=== PATIENT | female | born 1985 | race Caucasian/White ===

== ENCOUNTER 2016-07-10 11:47 | Outpatient (CLI) | payer OTHER ==
[2016-07-10 13:16] VITALS: BP 137/89; PULSE 88; RESP 18; TEMP 98.1
== END 2016-07-10 12:40 | disposition home or self-care (01) ==
LOC: FBPOP 11:47
PROVIDERS: ATTEND Obstetrics & Gynecology
DX: O30.93 Multiple gestation, unspecified, third trimester (principal); Z3A.00 Weeks of gestation of pregnancy not specified
CPT/HCPCS: 59025

== ENCOUNTER 2016-07-18 10:42 | Outpatient (CLI) | payer OTHER | END 2016-07-18 11:28 | disposition home or self-care (01) | LOC: FBPOP 10:42 | PROVIDERS: ATTEND Obstetrics & Gynecology | DX: O30.93 Multiple gestation, unspecified, third trimester (principal); Z3A.36 36 weeks gestation of pregnancy | CPT/HCPCS: 59025 ==

== ENCOUNTER 2016-07-20 05:46 | Inpatient (IN) | payer OTHER ==
--- NOTE | 2016-07-19 06:06 | P.HPOB ---
History of Present Illness H&P Date: 07/19/16 Chief Complaint: Patient is presenting for repeat and tubal ligation This patient is a pleasant 31-year-old 2 para 1 female estimated date of confinement 08/10/2016 estimated gestational age 37-0/7 weeks who presents to labor and delivery for repeat section secondary to previous section and known monochorionic/diamniotic twins. Patient has been followed by maternal medicine and they have recommended delivery at 37 weeks. Patient has a velamentous cord insertion of twin #2. Patient is also requesting tubal ligation at the time of her section. Review of Systems Constitutional: Denies chills, Denies fever Ears, nose, mouth and throat: Denies headache, Denies sore throat Cardiovascular: Denies chest pain, Denies shortness of breath Respiratory: Denies cough Gastrointestinal: Reports heartburn Genitourinary: Reports Menstruation: Reports amenorrhea Musculoskeletal: Denies myalgias Integumentary: Denies pruritus, Denies rash Neurological: Denies numbness, Denies weakness Past Medical History Past Medical History: No Reported History Additional Past Medical History / Comment(s): Patient has a history of infertility and conceived on Clomid. History of Any Multi-Drug Resistant Organisms: None Reported Past Surgical History: Breast Surgery, Section, Orthopedic Surgery Additional Past Surgical History / Comment(s): breast reduction, multiple ortho procedures Past Anesthesia/Blood Transfusion Reactions: No Reported Reaction Additional Past Anesthesia/Blood Transfusion Reaction / Comment(s): slow to wake up from anesthesia Past Psychological History: No Psychological Hx Reported Smoking Status: Never smoker Past Alcohol Use History: None Reported Past Drug Use History: None Reported - Past Family History Mother Family Medical History: No Reported History Medications and Allergies Home Medications Medication Instructions Recorded Confirmed Type Fuo-Eibo-Grtfz Acid 1 each PO DAILY 05/04/14 07/18/16 History [-U Capsule] Allergies Allergy/AdvReac Type Severity Reaction Status Date / Time No Known Allergies Allergy Verified 07/14/16 14:40 Exam - OBG Physical Exam Abdomen: bowel sounds normal, no diffuse tenderness, no bruit present, no guarding noted, no hepatomegaly, no splenomegaly, no mass Vulva: both: normal Vagina: normal moisture, no discharge Cervix: no lesion (Cervix is closed in the office.), no discharge Uterus: enlarged (Most recent fundal height was 48 cm.) Results blood work shows she is A positive, rubella immune, RPR nonreactive, hepatitis B negative, Glucola was normal 2, group B strep was negative, ultrasounds shows monochorionic/diamniotic twins. Assessment and Plan (1) Monochorionic and monoamniotic twin gestation Narrative/Plan: This is a pleasant 31-year-old 2 para 1 female 37-0/7 weeks gestation with known monochorionic/diamniotic twins with velamentous cord insertion and twin 2. Maternal medicine is recommended delivery at 37 weeks. His had previous section desires repeat and tubal ligation. Plan is repeat low transverse section and bilateral partial salpingectomy. The patient and I discussed the surgery in detail including risks of infection, bleeding, possible injury to bowel, bladder, vessels, and/or other organs. She also understands risk of DVT and pulmonary embolism. All the patient's questions are answered and a written consent is obtained. Status: Acute (2) Previous delivery affecting Status: Acute (3) Family planning Status: Acute
[2016-07-20] MEDS ORDERED: LACTATED RINGERS 1,000 ML IV ONE (05:51)
[2016-07-20] MEDS ORDERED: LACTATED RINGERS 1,000 ML IV SCH (05:51)
[2016-07-20] MEDS ORDERED: CITRIC ACID-SODIUM CITRATE 15 ML CUP PO ONE (05:51)
[2016-07-20 06:14] LABS: Basophils # (A) 0.1 k/uL (0-0.2); Basophils % (A) 0 %; CH 30.6; CHCM 35.4; Eosinophils # (A) 0.3 k/uL (0-0.7); Eosinophils % (A) 3 %; HCT 34.6 % (34.0-46.0); HDW 2.91; HGB 12.4 gm/dL (11.4-16.0); Luc # (Auto) 0.23; Luc % (Auto) 2; Lymphocytes # (A) 2.7 k/uL (1.0-4.8); Lymphocytes % (A) 21 %; MCH 31.2 pg (25.0-35.0); MCHC 35.9 g/dL (31.0-37.0); Mean Platelet Volume 8.7; Monocytes # (A) 0.5 k/uL (0-1.0); Monocytes % (A) 4 %; Neutrophils % (A) 71 %; RBC 3.98 m/uL (3.80-5.40); RDW 14.7 % (11.5-15.5); WBC 12.7 k/uL (3.8-10.6); WBC (Perox) 11.88
[2016-07-20 06:46] VITALS: BMI 41.5
[2016-07-20] MEDS ORDERED: ceFAZolin 3 GM in SODIUM CHLORIDE 0.9% 100 ML IVPB ONE (07:16)
[2016-07-20] MEDS ORDERED: PHENYLEPHRINE-0.9% NACL SYG 1 MG/10 ML SYRINGE ONE (07:50)
[2016-07-20] MEDS ORDERED: KETOROLAC 30 MG/ML 1 ML VIAL ONE (07:50)
[2016-07-20] MEDS ORDERED: OXYTOCIN 10 UNIT/ML 1 ML VIAL ONE (07:50)
[2016-07-20] MEDS ORDERED: NALBUPHINE 10 MG/ML AMPUL ONE (07:50)
[2016-07-20] MEDS ORDERED: ONDANSETRON 4 MG/2 ML VIAL ONE (07:50)
[2016-07-20] MEDS ORDERED: fentaNYL (PF) 50 MCG/ML 2 ML AMP ONE (07:50)
[2016-07-20] MEDS ORDERED: MORPHINE SULFATE (PF) 0.3 MG/0.3 ML SYR ONE (07:50)
[2016-07-20] MEDS ORDERED: NALOXONE 0.4 MG/ML 1 ML VIAL IV PRN ×2 (08:20→09:48)
[2016-07-20] MEDS ORDERED: diphenhydrAMINE 50 MG/ML 1 ML VIAL IVP PRN ×2 (08:20→09:48)
[2016-07-20] MEDS ORDERED: MORPHINE SULFATE 4 MG/ML SYRINGE IVP PRN (08:20)
[2016-07-20] MEDS ORDERED: ONDANSETRON 4 MG/2 ML VIAL IVP PRN ×2 (08:20→09:48)
[2016-07-20] MEDS ORDERED: KETOROLAC 30 MG/ML 1 ML VIAL IVP PRN ×2 (08:20→09:48)
[2016-07-20] MEDS ORDERED: NALBUPHINE 10 MG/ML AMPUL IV PRN (08:20)
--- NOTE | 2016-07-20 08:42 | P.OP ---
Date of Procedure: 07/20/16 Preoperative Diagnosis: #1: 37-0/7 weeks . #2: Known twin gestation monochorionic diamniotic. #3: Previous section. #4: Multi parity desires permanent sterilization. #5: Probable early labor. Postoperative Diagnosis: Same Procedure(s) Performed: #1: Repeat low transverse section. #2: Bilateral partial salpingectomy. Implants: Anesthesia: spinal Surgeon: Pedro Finley Skoog Machine Operator #1: Yeimi Granda Estimated Blood Loss (ml): 800 Pathology: other (Placenta and bilateral fallopian tube segments) Condition: stable Disposition: floor Indications for Procedure: Please see dictated H&P for intimate details of this patient's admission. In brief summary this is a pleasant 31-year-old 2 para 1 female 37-0/7 weeks gestation with known twin that is model chorionic and diamniotic. Recommendation has been per maternal medicine to deliver at 37 weeks and this was scheduled for today however patient does appear to be in early labor as well. Patient also was requesting permanent sterilization at this time. She understands this is permanent, however there is a failure rate of approximately 20 per thousand procedures done. She understands if she does become a 50% chance of a tubal or an ectopic . Rebeca also understands the surgery itself has risks including risks of infection, bleeding , possible injury to bowel, bladder, vessels, and/or other organs. Patient understands risk of DVT and pulmonary embolism. All the patient's questions are answered and a written consent is obtained. Operative Findings: Twin one was a vigorous viable male infant Apgars 8 and 9 in the vertex presentation at 0805 hrs. Twin 2 was a vigorous viable male infant Apgars 9 and 9 delivery time is 0806 hrs. in the transverse presentation. Description of Procedure: This patient has a Palomino catheter placed to straight drain. She subsequently taken to the operating room where she sat up and spinal anesthetic is administered without incident. With an adequate level of anesthesia she has abdominal prep and drape. Scalpels and taken in the previous Pfannenstiel incision is incised. A second scalpel is taken down to the fascia and the fascia scored with a knife. Fascial incision extended bilaterally using the Parks scissors. Fascia is then dissected off the rectus muscles sharply. Rectus muscles are the peritoneum is identified and entered sharply. Peritoneal incision extended inferiorly superiorly without difficulty. Bladder blade is then placed. The bladder peritoneum was taken off the lower uterine segment sharply. Scalpels and taken a low transverse uterine incision is then made. Using a hemostat I into the lower uterine segment bluntly and there is loss of clear fluid. Fetus 1 is delivered in the vertex presentation with fundal pressure. Mouth and nares are bulb suctioned, there is a nuchal cord 1 which is reduced, and then delivery of the rest of this infant's body. This is a vigorous viable male infant Apgars are 8 and 9 delivery time was 0805 hrs. After delivery of fetus 1 a cord is doubly clamped and cut and the fetus is handed off to the nurses who were in attendance. Twin 2 is found to be transverse presentation I guided into the vertex presentation and has spontaneous rupture for clear fluid again. The's infant's head is delivered and mouth and nares are bulb suctioned. There is no evidence of a nuchal cord. Then have delivery the rest of this 's body. This is a vigorous viable male Apgars are 9 and 9 delivery time was 0806 hrs. After delivery of the the umbilical cord again is doubly clamped and cut and again appears trivascular. Inspection of the uterus shows a monochorionic diffuse placenta with 2 sacs. This is delivered manually intact. Uterus is then externalized and uterine incision demarcated with Jade clamps. Uterine incision is then closed using 0 Vicryl running locked fashion. Excellent hemostasis is noted. The bladder peritoneum was then reapproximated using a 30 in a running fashion. Then turned my attention to the left fallopian tube approximately 4 cm from its cornual insertion a small window is made to the mesial salpinx with Bovie cautery. Using a 2-0 silk I doubly ligate the tube and a 2 cm segment of the tube was excised and handed off to pathology. Cauterization is done of the tubal ends. I inspected right fallopian tube and do a similar technique and the right fallopian tube was partially excised. With this done excess fluid is removed from the abdomen and pelvis. Uterus placed back into the abdomen. I inspected tubal ostia once again the appear to be hemostatic. I then closed the parietal peritoneum using an 0 Vicryl running fashion. The rectus muscles reapproximated in 0 Vicryl interrupted fashion. Fascia is then closed using 0 PDS in a running fashion. Fascial incision is intact and hemostatic. Subcutaneous tissues and closed using a 3-0 Vicryl. Skin is and closed using darnell. All counts are correct 3. There are no complications. Infant and mother are taken to the birthing suite in satisfactory condition.
[2016-07-20] MEDS ORDERED: ACETAMINOPHEN TAB 325 MG TAB PO PRN (09:48)
[2016-07-20] MEDS ORDERED: METOCLOPRAMIDE 5 MG/ML 2 ML VIAL IVP PRN (09:48)
[2016-07-20] MEDS ORDERED: OXYTOCIN 20 UNITS/1000 ML NS 1,000 ML IV SCH (09:48)
[2016-07-20] MEDS ORDERED: diphenhydrAMINE 25 MG CAP PO PRN (09:48)
[2016-07-20] MEDS: LACTATED RINGERS 1,000 ML IV SCH ×2 (12:04→20:32)
[2016-07-20] MEDS: SENNOSIDES-DOCUSATE SODIUM 1 EACH TAB PO SCH ×2 (17:31→20:20)
[2016-07-20] MEDS: IBUPROFEN 600 MG TAB PO PRN (20:20)
[2016-07-20] MEDS ORDERED: ZOLPIDEM 5 MG TAB PO PRN (21:00)
[2016-07-21] MEDS: IBUPROFEN 600 MG TAB PO PRN ×3 (03:55→20:28)
[2016-07-21] MEDS: LACTATED RINGERS 1,000 ML IV SCH (04:43)
[2016-07-21] MEDS ORDERED: Acetaminophen-Codeine 300-30mg TAB PO PRN ×2 (05:44)
--- NOTE | 2016-07-21 05:47 | P.PNOBGPC ---
Subjective - Subjective Patient reports: Reports appetite normal, Reports voiding normally, Reports pain well controlled, Reports ambulating normally : doing well Objective - Vital Signs Latest vital signs: Vital Signs Temp Pulse Resp BP Pulse Ox 07/21/16 04:00 98.0 F 70 16 130/83 07/21/16 00:00 98.0 F 60 16 127/67 07/20/16 20:00 98.2 F 71 16 134/83 96 07/20/16 16:48 17 98 07/20/16 16:00 98.0 F 65 17 121/63 100 07/20/16 15:00 17 07/20/16 13:20 95 07/20/16 13:00 17 07/20/16 12:00 98.0 F 55 L 16 120/55 95 07/20/16 11:25 16 95 07/20/16 10:37 53 L 16 127/79 95 07/20/16 10:07 54 L 16 114/65 93 L 07/20/16 09:35 52 L 16 97/56 96 07/20/16 09:20 53 L 17 99/55 93 L 07/20/16 09:19 52 L 17 109/58 94 L 07/20/16 08:50 52 L 16 90/50 97 07/20/16 08:36 96.0 F L 60 17 104/58 95 07/20/16 05:50 96.4 F L 78 16 133/77 Intake and Output 07/20/16 07/20/16 07/21/16 14:59 22:59 06:59 Output Total 3150 800 Balance -3150 -800 Output: Urine 3150 800 Straight 1450 Other: # Voids 1 - Exam Lungs: bilateral: normal Chest: Normal S1, Normal S2 Extremities: Present: normal Abdomen: Present: normal appearance, soft. Absent: distention, tenderness Incision: Present: normal, dry, intact Uterus: Present: normal, firm - Labs Labs: Abnormal Lab Results - Last 24 Hours (Table) 07/20/16 Range/Units 06:00 WBC 12.7 H (3.8-10.6) k/uL Neutrophils # 9.0 H (1.3-7.7) k/uL Assessment and Plan (1) Monochorionic and monoamniotic twin gestation Narrative/Plan: Postoperative day #1. Patient is resting without complaints. Vital signs are stable and she is afebrile. Uterus is firm nontender her incision is intact and dry. CBC is pending at time this dictation. I impression this is a normal postoperative course. Plan is to continue routine postoperative care, check a CBC, encourage ambulation, and allow the patient to shower. Current Visit: Yes Status: Acute Code(s): O30.019 - TWIN , MONOCHORIONIC/MONOAMNIOTIC, UNSP TRIMESTER SNOMED Code(s): 054622793 (2) Previous delivery affecting Current Visit: Yes Status: Acute Code(s): O34.219 - MATERNAL CARE FOR UNSP TYPE SCAR FROM PREVIOUS DEL SNOMED Code(s): 368900264 (3) Family planning Current Visit: Yes Status: Acute Code(s): Z30.09 - ENCOUNTER FOR OTH GENERAL CNSL AND ADVICE ON CONTRACEPTION SNOMED Code(s): 42946151
[2016-07-21] MEDS: SIMETHICONE 80 MG CHEWABLE PO PRN ×3 (07:58→18:49)
[2016-07-21] MEDS: SENNOSIDES-DOCUSATE SODIUM 1 EACH TAB PO SCH ×2 (07:58→20:28)
[2016-07-21 08:06] LABS: Basophils % (A) 0 %; CH 30.7; CHCM 34.7; Eosinophils # (A) 0.3 k/uL (0-0.7); Eosinophils % (A) 2 %; HCT 34.3 % (34.0-46.0); HDW 2.92; HGB 11.7 gm/dL (11.4-16.0); Luc # (Auto) 0.17; Luc % (Auto) 2; Lymphocytes % (A) 17 %; MCH 30.2 pg (25.0-35.0); Mean Platelet Volume 8.1; Monocytes # (A) 0.5 k/uL (0-1.0); Monocytes % (A) 4 %; Neutrophils # (A) 8.7 k/uL (1.3-7.7); Neutrophils % (A) 74 %; RBC 3.86 m/uL (3.80-5.40); RDW 14.9 % (11.5-15.5); WBC 11.7 k/uL (3.8-10.6); WBC (Perox) 11.11
--- NOTE | 2016-07-21 10:52 | P.PN ---
Progress Note - Text Date:07/21 Time:715 Patient is status post . Patient seen this morning with VAS score of 0 at rest.c/o mild pruritus, no c/o nausea/vomiting, comfortable and doing well.
[2016-07-22] MEDS: LACTATED RINGERS 1,000 ML IV SCH (00:15)
[2016-07-22] MEDS: IBUPROFEN 600 MG TAB PO PRN ×2 (01:53→07:49)
--- NOTE | 2016-07-22 07:09 | P.PNOBGPC ---
Subjective - Subjective Patient reports: Reports appetite normal, Reports voiding normally, Reports pain well controlled, Reports ambulating normally : doing well Objective - Vital Signs Latest vital signs: Vital Signs Temp Pulse Resp BP Pulse Ox 07/22/16 00:00 97.7 F 70 16 132/72 100 07/21/16 16:00 97.8 F 76 20 130/78 97 07/21/16 12:00 98.0 F 82 20 135/86 98 07/21/16 08:00 97.8 F 71 24 136/77 97 Intake and Output 07/21/16 07/22/16 07/22/16 22:59 06:59 14:59 Intake Total 360 Balance 360 Intake: Oral 360 Other: Voiding Method Toilet Toilet # Voids 2 1 - Exam Lungs: bilateral: normal Chest: Normal S1, Normal S2 Extremities: Present: normal Abdomen: Present: normal appearance, soft. Absent: distention, tenderness Incision: Present: normal, dry, intact Uterus: Present: normal, firm - Labs Labs: Abnormal Lab Results - Last 24 Hours (Table) 07/21/16 Range/Units 07:47 WBC 11.7 H (3.8-10.6) k/uL Plt Count 148 L (150-450) k/uL Neutrophils # 8.7 H (1.3-7.7) k/uL Assessment and Plan (1) Monochorionic and monoamniotic twin gestation Narrative/Plan: Postoperative day #2. Patient is resting without complaints and most likely will go home today. Vital signs are stable and she is afebrile. Uterus is firm nontender she's having normal lochia. Patient is tolerating regular diet, ambulating, and urinating without difficulty. Incision is intact and dry. My impression is a normal postoperative course. Plan is to continue routine postoperative care discharge home later today Current Visit: Yes Status: Acute Code(s): O30.019 - TWIN , MONOCHORIONIC/MONOAMNIOTIC, UNSP TRIMESTER SNOMED Code(s): 283084290 (2) Previous delivery affecting Current Visit: Yes Status: Acute Code(s): O34.219 - MATERNAL CARE FOR UNSP TYPE SCAR FROM PREVIOUS DEL SNOMED Code(s): 936772733 (3) Family planning Current Visit: Yes Status: Acute Code(s): Z30.09 - ENCOUNTER FOR OTH GENERAL CNSL AND ADVICE ON CONTRACEPTION SNOMED Code(s): 51563293
--- NOTE | 2016-07-22 07:13 | P.DS ---
Providers Date of admission: 07/20/16 05:46 Expected date of discharge: 07/22/16 Attending physician: Pedro Finley Primary care physician: Pedro Finley - Discharge Diagnosis(es) (1) Monochorionic and monoamniotic twin gestation Current Visit: Yes Status: Acute (2) Previous delivery affecting Current Visit: Yes Status: Acute (3) Family planning Current Visit: Yes Status: Acute Hospital Course: Please see dictated H&P for intimate details of this patient's admission. Brief summary this is a pleasant 31-year-old 2 para 1 female 37-0/7 weeks gestation who is admitted to labor and delivery for elective repeat section and tubal ligation. Patient is also thought to be in early labor. Patient is admitted undergoes above-named surgery for twin male infants. Please see dictated operative note. Postoperative patient does well felt be stable for discharge home on postoperative #2 follow up with me in 1 week. Procedures: Repeat low transverse section and bilateral partial salpingectomy. Patient Condition at Discharge: Good Plan - Discharge Summary New Discharge Prescriptions: Acetaminophen-Codeine 300-30mg [Tylenol w/codeine #3] 1 - 2 each PO Q4HR PRN # 40 tab PRN Reason: Pain Ibuprofen [Motrin] 600 mg PO Q6HR PRN #40 tab PRN Reason: Mild Pain Or Fever >= 100.5 Discharge Medication List Ray-Vfbi-[id number] Acid [-U Capsule] 1 tab PO DAILY 05/04/14 [ History] Acetaminophen-Codeine 300-30mg [Tylenol w/codeine #3] 1 - 2 each PO Q4HR PRN # 40 tab 07/21/16 [Rx] Ibuprofen [Motrin] 600 mg PO Q6HR PRN #40 tab 07/21/16 [Rx] Follow up Appointment(s)/Referral(s): Pedro Finley MD [Primary Care Provider] - 07/27/16 1:45 pm (Patient also has a check on August 28 at 11:30 AM.) Patient Instructions/Handouts: (GEN) Activity/Diet/Wound Care/Special Instructions: No strenuous activities or heavy lifting for 6 weeks. No intercourse or anything per vagina for 6 weeks. Please call if any fever, chills, excessive vaginal bleeding, and/or abdominal pain. Discharge Disposition: HOME SELF-CARE
[2016-07-22] MEDS: SENNOSIDES-DOCUSATE SODIUM 1 EACH TAB PO SCH (07:50)
[2016-07-22 07:56] VITALS: BP 143/83; PULSE 55; RESP 18; TEMP 97.4
== END 2016-07-22 11:30 | disposition home or self-care (01) | DRG 765 ==
LOC: 4FBP 05:46
PROVIDERS: ADMIT Obstetrics & Gynecology; ATTEND Obstetrics & Gynecology
PROC: 0UB70ZZ Excision of Bilateral Fallopian Tubes, Open Approach (ICD-10-PCS; principal; 2016-07-20 08:00)
PROC: 10D00Z1 Extraction of Products of Conception, Low, Open Approach (ICD-10-PCS; principal; 2016-07-20 08:00)
DX: O34.211 Maternal care for low transverse scar from previous cesarean delivery (principal); O30.033 Twin pregnancy, monochorionic/diamniotic, third trimester; Z37.2 Twins, both liveborn; O43.123 Velamentous insertion of umbilical cord, third trimester; Z30.2 Encounter for sterilization; Z3A.37 37 weeks gestation of pregnancy; O69.81X1 Labor and delivery complicated by cord around neck, without compression, fetus 1; O32.2XX2 Maternal care for transverse and oblique lie, fetus 2
CPT/HCPCS: 85025; 86850; 86900; 86901; 88302; 88307

== ENCOUNTER → 2022-03-22 | Outpatient (CLI) | payer OTHER ==
--- NOTE | 2022-03-22 14:22 | MM ---
Reason for Exam: Clinical finding. Indicated Problems: Pain of the left side (Global) for 2 Week(s) : 3-9 oclock inferior. Patient History: Menarche at age 13. First Full-Term at age 28. Hormonal Contraceptives, starting at age 17. 06/18/2007, Bilateral Reduction. 09/16/2006, Bilateral Reduction. Last menstrual period: 03/01/2022 Risk Values: Shanon 5 year model risk: 0.3%. NCI Lifetime model risk: 11.3%. Tissue Density: There are scattered fibroglandular densities. Findings: Analyzed By CAD. No suspicious mass distortion or calcification. Nothing to correlate patient's mastodynia. Overall Assessment: Negative, BI-RAD 1 Management: Screening Mammogram of both breasts at age 41. Manage pain clinically. A clinical breast exam by your physician is recommended on an annual basis and results should be correlated with mammographic findings. This exam should not preclude additional follow-up of suspicious palpable abnormalities. Results were given to the patient verbally at the time of exam. Electronically signed and approved by: Gerardo Fabian DO
== END | disposition home or self-care (01) ==
LOC: RADMAMWWP 12:45
PROVIDERS: ATTEND Obstetrics & Gynecology
DX: N64.4 Mastodynia (principal)
CPT/HCPCS: 77062; 77066